=== PATIENT | female | born 1965 | race Two or more races ===

== ENCOUNTER → 2017-08-29 | Emergency (ER) | payer OTHER ==
[~2017-08-29] VITALS: Ht 157.5 cm; Wt 94.8 kg
[~2017-08-29] MED LIST: PREVACID30 MG; SYNTHROID150 MCG
== END | disposition home or self-care (01) ==
LOC: ER 15:58
DX: K52.9 Noninfective gastroenteritis and colitis, unspecified (principal)

== ENCOUNTER 2018-02-03 12:30 | Emergency (ER) | payer OTHER ==
[~2018-02-03] VITALS: Ht 157.5 cm; Wt 95.3 kg
== END 2018-02-03 19:59 | disposition home or self-care (01) ==
LOC: ER 12:30
DX: N93.8 Other specified abnormal uterine and vaginal bleeding (principal)